=== PATIENT | female | born 1995 | race African-American/Black ===

== ENCOUNTER 2019-12-30 18:26 | Emergency (ER) | payer OTHER ==
[2019-12-30] MEDS ORDERED: CHERRY SYRUP 10 ML UDC PO ONE (19:46)
[2019-12-30] MEDS ORDERED: DEXAMETHASONE 10 MG/ML VIAL PO STA (19:46)
--- NOTE | 2019-12-30 19:47 | ED Physician Documentation ---
PD HPI CHEST PAIN - Stated complaint Stated Complaint: CP - Chief complaint Chief Complaint: Cardiac - History obtained from History obtained from: Patient - History of Present Illness Timing - onset: Yesterday Timing - onset during: Rest Timing - details: Intermittant Pain level max: 5 Pain level now: 0 Quality: Pressure, Sharp Location: Left chest Radiation: No: Jaw, Neck, Back, Abdominal, Left upper extremity, Right upper extremity Improved by: ASA Worsened by: Other (Taking a deep breath) Associated symptoms: No: Shortness of air, Diaphoresis, Nausea, Vomiting, Feeling faint / dizzy, General Weakness, Palpitations, Cough Similar symptoms before: Has not had sx before Recently seen: Not recently seen - Additional information Additional information: No recent surgery. No recent travel. Does not smoke. No hormone replacement. No control. No family history of blood clots. Asymptomatic currently. The initial episode lasted approximately 2 hours yesterday. A second episode lasted approximately 30 minutes today. Review of Systems Constitutional: denies: Fever, Chills Nose: denies: Rhinorrhea / runny nose, Congestion Cardiac: denies: Palpitations Respiratory: denies: Dyspnea, Cough, Wheezing GI: denies: Abdominal Pain, Nausea, Vomiting, Diarrhea Skin: denies: Rash Musculoskeletal: denies: Neck pain, Back pain Neurologic: denies: Headache PD PAST MEDICAL HISTORY - Past Medical History Past Medical History: No - Past Surgical History Past Surgical History: No - Allergies Allergies/Adverse Reactions: Allergies Allergy/AdvReac Type Severity Reaction Status Date / Time loratadine [From Claritin] AdvReac Rash Verified 12/30/19 18:35 - Social History Does the pt smoke?: No Smoking Status: Never smoker Does the pt drink ETOH?: No Does the pt have substance abuse?: No - Immunizations Immunizations are current?: Yes PD ED PE NORMAL - Vitals Vital signs reviewed: Yes - General General: Alert and oriented X 3, No acute distress - HEENT HEENT: Moist mucous membranes - Neck Neck: Supple, no meningeal sign - Cardiac Cardiac: RRR, Strong equal pulses - Respiratory Respiratory: No respiratory distress, Clear bilaterally, Other (No tenderness over the chest wall.) - Abdomen Abdomen: Soft, Non tender, Non distended - Back Back: No CVA TTP - Derm Derm: Warm and dry - Extremities Extremities: No edema, No calf tenderness / cord - Neuro Neuro: Alert and oriented X 3 - Psych Psych: Normal mood, Normal affect Results - Vitals Vitals: Vital Signs - 24 hr 12/30/19 12/30/19 18:35 19:00 Temperature 36.9 C Heart Rate 58 L 58 L Respiratory 16 18 Rate Blood Pressure 104/61 114/59 L O2 Saturation 100 100 Oxygen O2 Source Room air - EKG (time done) 1833 Rate: Rate (enter#) (68) Rhythm: NSR Mayo: Normal Intervals: Normal PA QRS: Normal Ischemia: Normal ST segments PD MEDICAL DECISION MAKING - ED course Complexity details: reviewed results, considered differential (No ST elevation LA, no aortic dissection, no PE, no tension pneumothorax, no aortic aneurysm), d/w patient ED course: 24-year-old female with atypical chest pain. Likely pleurisy. We will give a dose of steroids here. No evidence of acute coronary syndrome. No evidence of PE. No hypoxia. No tachycardia. Asymptomatic currently. Patient counseled regarding signs and symptoms for which I believe and urgent re-evaluation would be necessary. Patient with good understanding of and agreement to plan and is comfortable going home at this time This document was made in part using voice recognition software. While efforts are made to proofread this document, sound alike and grammatical errors may occur. Departure - Departure Disposition: 01 Home, Self Care Clinical Impression: Atypical chest pain Condition: Good Instructions: ED Chest Pain Atypical Unkn Cause, ED Chest Pain Pleurisy Follow-Up: Your,doctor in 1 week [Other] Comments: You can use Motrin or Tylenol as needed for pain at home. Return if you worsen. This should improve over the next week.
[2019-12-30 19:53] VITALS: BP 121/66
== END 2019-12-30 19:59 | disposition home or self-care (01) ==
LOC: ED 18:26
DX: R07.89 Other chest pain (principal)
CPT/HCPCS: 93005; 99283; 99284; A9270